=== PATIENT | female | born 1940 | race African-American/Black ===

== ENCOUNTER 2020-08-28 21:27 | Inpatient (IN) | payer OTHER ==
[~2020-08-28] VITALS: Ht 162.6 cm; Wt 84.5 kg
[~2020-08-28 21:27] MED LIST: CARDIZEM CD 18180 M3 PO; CLARITIN10 MG PO; DIOVAN; HYDROCHLOROTHIA25 M1 PO; MICRO-K 10 MEQ10 MEQ OR; SINGULAIR 10 MG10 MG PO
[2020-08-28 21:53] VITALS: BP 160/84
[2020-08-28 23:15] LABS: ABSOLUTE NEUTROPHILS 8.7 thou/uL (1.4-8.2); BASOPHILS 0.3 % (0.0-2.0); HEMATOCRIT 36.5 % (37.0-47.0); HEMOGLOBIN 11.7 gm/dL (12.0-15.0); LYMPHOCYTES 6.7 % (24.0-44.0); MCH 26.7 pg (26.0-34.0); MCHC 32.2 g/dL (28.0-37.0); MCV 83.1 fL (80.0-100.0); MONOCYTES 12.3 % (1.0-8.0); PLATELET COUNT 281 thou/uL (150-400); POLYS 80.7 % (36.0-66.0); RBC 4.39 mil/uL (4.20-5.00); RDW 15.3 % (10.5-14.5); WBC 10.7 thou/uL (4.0-11.0)
[2020-08-28 23:32] LABS: ANION GAP 11 mmol/L (7-16); BUN 35 mg/dL (7-18); CALCIUM 9.9 mg/dL (8.5-10.1); CHLORIDE 99 mmol/L (98-107); CO2 27 mmol/L (21-32); CREATININE 1.4 mg/dL (0.6-1.0); GLUCOSE 172 mg/dL (74-106); POTASSIUM 3.9 mmol/L (3.5-5.1); SODIUM 137 mmol/L (136-145)
[2020-08-28 23:33] LABS: TROPONIN-I <0.06 ng/mL (<0.06)
[2020-08-28 23:43] LABS: LARGE PLATELETS OCCASIONAL
[2020-08-29 04:31] VITALS: BP 146/52
[2020-08-29 05:32] VITALS: BP 135/65
[2020-08-29 06:00] VITALS: BP 141/49
--- NOTE | 2020-08-29 06:58 | NUR ---
PT ARRIVED FROM ER VIA CART, PLACED IN ROOM 353. PT IS SPOUSE OF THE PT IN 357. ADMISSION ASSESSMENTS COMPLETED. MEDICATIONS GIVEN ORDERED. SEE CHARTING.
--- NOTE | 2020-08-29 07:18 | EKG ---
[facility] [place] [address] ELECTROCARDIOGRAM REPORT Name: ANATOLY LUTZ Room #: 353-P ADM IN M.R.#: [id number] Admission: 08/29/20 Attend Phys: Marcus Castle Discharge: Date of : 40 Report #: [id number] [facility] ED Test Date: 2020-08-28 Test Time: 23:01:18 Pat Name: ANATOLY LUTZ Department: Room: 353 Gender: F Benefits Representative: reena : 1940 Requested By: Maxime Finley Order Number: [id number] MD: Mike Nava Measurements Intervals [place] Rate: 52 P: 83 MS: 132 QRS: -40 QRSD: 110 T: -60 QT: 461 QTc: 429 Interpretive Statements Sinus rhythm Abnormal R-wave progression, early transition LVH with IVCD, LAD and secondary repol abnrm No previous ECG available for comparison Electronically Signed On 08-29-2020 7:17:56 [employer]ESS MACHINE [employer]ED[employer] by Mike Nava [email or web address] <ELECTRONICALLY SIGNED> By: Mike Nava MD, [facility] 08/29/20 0717 230 00 Mike Nava MD, FACC /EPI
[2020-08-29 10:42] LABS: ALBUMIN 3.1 g/dL (3.4-5.0); DIRECT BILIRUBIN 0.2 mg/dL (<0.1-0.2); TOTAL BILIRUBIN 0.4 mg/dL (0.2-1.0); TOTAL PROTEIN 7.8 g/dL (6.4-8.2)
--- NOTE | 2020-08-29 13:28 | NUR ---
INITIAL ASSESSMENT: TRACEY reviewed chart and spoke with nursing and attending physician. Pt was admitted from home due to hypoxia. Pt placed in Enhanced Isolation due to COVID-19. Pt is afebrile and on 2L of O2. Pt is on IV abx and IV steroids. ID consulted. SW spoke with pt via phone. Introduced role of SW. Pt is alert/orientated x 4. Pt reports she and her (currently in room 357) live at home. Prior to admission, pt was independent with ADLs. No use of DME. Pt reports that there are 4-5 steps to enter the house through the garage and then about 10 steps inside the house. No hx of HH services or post-acute placement. Pt's PCP is Dr. Ra Hummel. Plan is for pt to return home when medically stable. Should pt need HH service, pt requests to use [facility]. Pt's spouse is currently on service. Pt was staying in a hotel prior to admission, due to furnace going out at their home. Furnace to be replaced today. Pt and spouse will discharge home when medically stable. TRACEY is following to assist as needed with discharge planning.
[2020-08-29 15:19] VITALS: BP 127/52
--- NOTE | 2020-08-29 18:34 | NUR ---
ASSUMED PATIENT CARE AT 0700. A/O X3. 2L/NC. UP AD JOSELUIS. DENIES PIAN. SOB WITH EXERTION. WILL KEEP MONITOR.
[2020-08-29 19:24] VITALS: BP 123/46
[2020-08-30 03:38] VITALS: BP 157/73
[2020-08-30 05:48] LABS: HEMATOCRIT 33.2 % (37.0-47.0); HEMOGLOBIN 10.4 gm/dL (12.0-15.0); MCH 26.2 pg (26.0-34.0); MCHC 31.4 g/dL (28.0-37.0); MCV 83.5 fL (80.0-100.0); RBC 3.98 mil/uL (4.20-5.00); RDW 15.4 % (10.5-14.5); WBC 13.4 thou/uL (4.0-11.0)
[2020-08-30 06:19] LABS: ALBUMIN 2.4 g/dL (3.4-5.0); ANION GAP 13 mmol/L (7-16); BUN 39 mg/dL (7-18); CALCIUM 8.7 mg/dL (8.5-10.1); CHLORIDE 103 mmol/L (98-107); CO2 23 mmol/L (21-32); CREATININE 1.3 mg/dL (0.6-1.0); DIRECT BILIRUBIN < 0.1 mg/dL (<0.1-0.2); GLUCOSE 152 mg/dL (74-106); PHOSPHORUS 3.3 mg/dL (2.5-4.9); POTASSIUM 3.5 mmol/L (3.5-5.1); SGOT 21 U/L (15-37); SGPT 21 U/L (30-65); SODIUM 139 mmol/L (136-145); TOTAL BILIRUBIN 0.4 mg/dL (0.2-1.0); TOTAL PROTEIN 6.8 g/dL (6.4-8.2)
--- NOTE | 2020-08-30 07:19 | NUR ---
Pt. stated she slept well during the night. Maintaining O2 sat in the low to mid 90's on 2L/NC. She reported being short of breath with exertion only but not bad. She gets up ad blue in room with steady gait. Cont. on enhanced precaution , afebrile. MRSA swab sent to lab last night.
[2020-08-30 07:32] VITALS: BP 155/74
--- NOTE | 2020-08-30 08:44 | HC ---
[facility] [place] [address] CONSULTATION Name: ANATOLY LUTZ Room #: 353-P ADM IN M.R.#: [id number] Admission: 08/29/20 Attend Phys: Марина Bynum MD Discharge: Date of : 40 Report #: [id number] THIS REPORT FOR: cc: Yung Cantu MD, Stanley P. MD Barry, Joseph W. MD ~ DATE OF SERVICE: 08/29/2020 INFECTIOUS DISEASE CONSULTATION ATTENDING PHYSICIAN: ____ REASON FOR EVALUATION: COVID-19 infection, complicated by pneumonitis and respiratory failure. Chart reviewed, patient examined. HISTORY OF PRESENT ILLNESS: This is a 79-year-old woman with history of diabetes mellitus, hypertension, asthma, who apparently was tested positive for COVID roughly 8 days ago. I have been monitoring her saturations, they have been in the low 90s. She actually denies significant complaints. She noted her family members insisted she come. She had been on azithromycin as well as prednisone in the interim. She believes she had some fevers at home. On evaluation, portable chest did show bibasilar pneumonitis. CT was done due to mildly elevated D-dimer. No evidence of PE, did confirm ground glass opacities bilaterally. Procalcitonin was 0.12. BNP of 435. She was empirically started on vancomycin and Zosyn as well as methylprednisolone. ALLERGIES: None known. CURRENT MEDICATIONS: Include vancomycin, heparin subcutaneously, ascorbic acid, methylprednisolone, Zosyn, insulin lispro sliding scale, pantoprazole, zinc, acetaminophen, ondansetron. PAST MEDICAL HISTORY: Includes hypertension, diabetes mellitus type 2, asthma and gout. SOCIAL HISTORY: Nonsmoker, occasional ethanol, no illicit drug use. FAMILY HISTORY: Noncontributory. REVIEW OF SYSTEMS: Otherwise, unremarkable 10-point review of systems. PHYSICAL EXAMINATION: GENERAL: She is alert, cooperative, appropriate. She has [id number] [facility] [address] [place] [address] CONSULTATION Name: ANATOLY LUTZ Room #: 353-P [facility] IN [facility]#: [id number] Admission: 08/29/20 Attend Phys: Марина Bynum MD Discharge: Date of : 40 Report #: [id number] distress. She is supplemented with nasal cannula oxygen at 2 liters. VITAL SIGNS: Temperature 97.9, pulse 52, respirations 16, blood pressure 141/49. SKIN: Warm, dry, no rashes. HEENT: Normocephalic. Extraocular muscles intact. NECK: Supple. LUNGS: Few scattered crackles at the bases. HEART: Regular. Borderline bradycardic. I do not appreciate a murmur. ABDOMEN: Soft, mildly distended, nontender, no peritoneal signs. GENITOURINARY: Deferred. RECTAL: Deferred. LABORATORY DATA: CTA chest PE protocol as noted above. Sed rate elevated at 90. Ferritin 478. Troponin less than 0.06. D-dimer 1.62. CBC: White count of 10.7, H and H 11.7 and 36.5, platelets of 281. ProBNP of 435. Electrolytes: Sodium 137, potassium 3.9, chloride 99, bicarbonate 27, anion gap of 11, BUN and creatinine 35 and 1.4. Estimated GFR of 44. ASSESSMENT: COVID-19 infection, complicated by pneumonitis and respiratory failure requiring supplemental oxygen, also a history of asthma and diabetes mellitus. Continue empiric therapy with antibacterials. We will add remdesivir and ivermectin as well as additional vitamins to her regimen at this point. She remains somewhat tenuous. Continue to monitor expectantly. Certainly at risk of developing worsening signs and symptoms. <ELECTRONICALLY SIGNED> By: Curtis Alfredo MD 08/30/20 0844 [id number] [id number] Curtis Alfredo MD /nt
--- NOTE | 2020-08-30 14:32 | NUR ---
SW reviewed chart and spoke with nursing and attending physician. Pt remains in Enhanced Isolation due to COVID-19. Pt is afebrile and on 2L of O2. Pt is on IV abx and IV steroids. Pt is completing courses of Remdesivir and Ivermectin. PT/OT ordered today to evaluate pt for discharge needs. Plan is for pt to discharge home when medically stable. TRACEY is following to assist as needed with discharge planning.
[2020-08-30 15:08] VITALS: BP 149/54
--- NOTE | 2020-08-30 17:24 | NUR ---
ASSUMED CARE OF PT AT 0700. PT AOX4 IN NO ACUTE DISTRESS. BREATHING COMFORTABLY ON 2L NC. UP AD JOSELUIS. SOCIALIZING WITH . CALLS APPROPRIATELY. IVF INFUSING PER ORDER. WCM.
[2020-08-30 19:31] VITALS: BP 144/64
[2020-08-31 03:36] VITALS: BP 180/63
--- NOTE | 2020-08-31 06:42 | NUR ---
PT TITRATED DOWN TO 1L VIA NC. PT STATES SHE IS HAVING DIARRHEA OVERNIGHT. VSS AND PT UP WITH SBA.
[2020-08-31 07:11] VITALS: BP 150/59
[2020-08-31 07:17] LABS: ALBUMIN 2.2 g/dL (3.4-5.0); ANION GAP 9 mmol/L (7-16); BUN 45 mg/dL (7-18); CALCIUM 8.4 mg/dL (8.5-10.1); CHLORIDE 107 mmol/L (98-107); CO2 23 mmol/L (21-32); CREATININE 1.3 mg/dL (0.6-1.0); DIRECT BILIRUBIN < 0.1 mg/dL (<0.1-0.2); GLUCOSE 148 mg/dL (74-106); PHOSPHORUS 3.3 mg/dL (2.6-4.7); POTASSIUM 3.4 mmol/L (3.5-5.1); SGOT 18 U/L (15-37); SGPT 22 U/L (14-59); SODIUM 139 mmol/L (136-145); TOTAL BILIRUBIN 0.3 mg/dL (0.2-1.0); TOTAL PROTEIN 6.2 g/dL (6.4-8.2)
[2020-08-31] MEDS ORDERED: FUROSEMIDE 20 M20 M1 PO (07:53)
[2020-08-31] MEDS ORDERED: KLOR-CON M2020 MEQ PO (07:56)
[2020-08-31] MEDS ORDERED: CANDESARTAN-HC1 EACH PO (07:58)
[2020-08-31] MEDS ORDERED: CANDESARTAN-HC1 EAC2 PO (07:59)
[2020-08-31] MEDS ORDERED: LORAZEPAM 0.50.5 MG PO (08:00)
[2020-08-31] MEDS ORDERED: METFORMIN HCL500 M3 PO (08:01)
[2020-08-31] MEDS ORDERED: ALLOPURINOL 30300 M1 PO (08:01)
[2020-08-31] MEDS ORDERED: VITAMIN D3 COM1 EACH PO (08:02)
[2020-08-31] MEDS ORDERED: CALCIUM500 MG PO (08:03)
[2020-08-31] MEDS ORDERED: ASA81BEC PO (08:03)
[2020-08-31 13:57] LABS: CALCIUM 8.4 mg/dL (8.5-10.1); CREATININE 1.2 mg/dL (0.6-1.0); POTASSIUM 3.7 mmol/L (3.5-5.1)
--- NOTE | 2020-08-31 14:40 | NUR ---
TRACEY reviewed chart and spoke with nursing and attending physician. Pt remains in Enhanced Isolation due to COVID-19. Pt is afebrile and on 1.5L of O2. Pt is on IV abx and IV steroids. Pt is completing course of Remdesivir. Discharge home is anticipated for tomorrow. TRACEY spoke with pt via phone. Discussed discharge plan. Pt declines needing home health services when discharged. Pt may need rest/exercise oximetry to determine home O2 needs. Pt will have transportation home. Pt asked about completing a DPOA document. TRACEY explained that [facility] is able to provide and notarize [facility] Healthcare DPOA documents only. Pt verbalized understanding and states that she will notify her children. Plan is for pt to discharge home when medically stable. TRACEY is following to assist as needed with discharge planning.
[2020-08-31 14:58] LABS: HEMATOCRIT 32.8 % (37.0-47.0); HEMOGLOBIN 10.1 gm/dL (12.0-15.0); MCH 25.7 pg (26.0-34.0); MCHC 30.8 g/dL (28.0-37.0); MCV 83.5 fL (80.0-100.0); PLATELET COUNT 326 thou/uL (150-400); RBC 3.93 mil/uL (4.20-5.00); RDW 15.6 % (10.5-14.5); WBC 17.2 thou/uL (4.0-11.0)
[2020-08-31 15:14] VITALS: BP 175/69
[2020-08-31 15:31] LABS: ABSOLUTE NEUTROPHILS 15.5 thou/uL (1.4-8.2); ATYPICAL LYMPHS 2 %; METAMYELOCYTES 1 %; OVALOCYTES FEW; SCHISTOCYTES FEW
[2020-08-31 15:32] LABS: LARGE PLATELETS OCCASIONAL; TARGET CELLS FEW
[2020-09-01 04:35] VITALS: BP 162/59
[2020-09-01 06:45] LABS: HEMATOCRIT 32.7 % (37.0-47.0); HEMOGLOBIN 10.3 gm/dL (12.0-15.0); MCH 26.4 pg (26.0-34.0); MCHC 31.6 g/dL (28.0-37.0); MCV 83.5 fL (80.0-100.0); RBC 3.91 mil/uL (4.20-5.00); WBC 15.5 thou/uL (4.0-11.0)
--- NOTE | 2020-09-01 06:46 | NUR ---
PT ADVANCING TOWARDS DC GOALS. PT ON 1L VIA [place] AND STATES SHE IS READY TO GO HOME. VSS OVERNIGHT AND NO COMPLAINTS. CALL LIGHT WITHIN REACH.
[2020-09-01 07:11] LABS: DIRECT BILIRUBIN < 0.1 mg/dL (<0.1-0.2); MAGNESIUM 2.2 mg/dL (1.8-2.4); PHOSPHORUS 2.9 mg/dL (2.5-4.9)
[2020-09-01 07:12] LABS: ALBUMIN 2.1 g/dL (3.4-5.0); CALCIUM 8.3 mg/dL (8.5-10.1); MAGNESIUM 2.3 mg/dL (1.8-2.4); POTASSIUM 3.8 mmol/L (3.5-5.1); TOTAL BILIRUBIN 0.3 mg/dL (0.2-1.0); TOTAL PROTEIN 5.4 g/dL (6.4-8.2)
[2020-09-01 07:56] VITALS: BP 172/68
[2020-09-01] MEDS ORDERED: CEFDINIR300 MG PO (11:51)
[2020-09-01] MEDS ORDERED: VITAMIN B-1100 M2 PO (11:51)
[2020-09-01] MEDS ORDERED: ZINC SULFATE 2220 MG PO (11:51)
[2020-09-01] MEDS ORDERED: LOPERAMIDE 2 MG2 M1 PO (11:51)
[2020-09-01] MEDS ORDERED: ACEROLA C500 MG PO (11:51)
[2020-09-01] MEDS ORDERED: PROTONIX 20 MG20 M1 PO (11:51)
[2020-09-01] MEDS ORDERED: ACETAMINOPHEN325 M1 PO (11:51)
[2020-09-01] MEDS ORDERED: VITAMIN D325 MC1 PO (11:51)
[2020-09-01] MEDS ORDERED: PREDNISONE 20 M20 M1 PO (11:51)
[2020-09-01 12:27] VITALS: BP 172/68
--- NOTE | 2020-09-01 13:51 | NUR ---
DISCHARGE NOTE: SW reviewed chart and spoke with nursing and attending physician. Pt remains in Enhanced Isolation due to COVID-19. Pt is medically stable for discharge home today. Orders written for HH services. Pt has been off O2. Pt was discharged prior to SW visiting with pt regarding HH. SW spoke with pt's dtr, Em, via phone to discuss discharge plan. Pt had previously declined HH, but pt's dtr states they would like to have HH come see pt after discharge. SW provided options for HH providers. Pt's dtr agreeable with referral to [facility], as pt's spouse will be using them when discharged. SW faxed referral and finalized discharge orders/summary to [facility]. Phone line busy at . Will follow up with intake. Pt's dtr providing transportation home. No additional SW needs identified at this time, but is available to assist should needs arise.
== END 2020-09-01 13:42 | disposition home health service (06) | DRG 177 ==
LOC: ER 21:27 → EROBS 08-29 00:51 → 3W 08-29 00:51
PROVIDERS: Emergency Medicine; Internal Medicine; Nurse Practitioner Family; Specialist; ADMIT Internal Medicine; ATTEND Internal Medicine
PROC: XW033E5 Introduction of Remdesivir Anti-infective into Peripheral Vein, Percutaneous Approach, New Technology Group 5 (ICD-10-PCS; principal; 2020-08-29)
DX: U07.1 COVID-19 (principal); J96.01 Acute respiratory failure with hypoxia; N17.0 Acute kidney failure with tubular necrosis; J12.89 Other viral pneumonia; E46 Unspecified protein-calorie malnutrition; I10 Essential (primary) hypertension; J45.909 Unspecified asthma, uncomplicated; E11.9 Type 2 diabetes mellitus without complications; M10.9 Gout, unspecified; Z90.710 Acquired absence of both cervix and uterus; Z68.32 Body mass index [BMI] 32.0-32.9, adult; Z79.899 Other long term (current) drug therapy
CPT/HCPCS: 10080; 10879